=== PATIENT | female | born 1955 | race Caucasian/White ===

== ENCOUNTER → 2016-12-25 | Day surgery (SDC) | payer OTHER ==
[~2016-12-25] VITALS: Ht 157.5 cm; Wt 55.5 kg
[~2016-12-25] MED LIST: ASPI81TA28 PO; CARV3.12 PO; CARV3.122 PO; EPP3/2 IM; LIDOCAINE HCL 2% 2 ML VIAL (20MG/ML) ONE; MIDAZOLAM HCL 1 MG/ML 2ML VIAL ONE; PROPOFOL IV EMULSION 10 MG/ML 20 ML VIAL IV ONE; SODIUM CHLORIDE 0.9% 500ML 500 ML IV ONE; VNTHFA/IN INH
[2016-12-25 10:14] VITALS: Ht 157.5 cm; Wt 55.5 kg
--- NOTE | 2016-12-25 10:36 | Endo History and Physical ---
History & Physical Date of Service: Dec 25, 2016. Chief Complaint: RECTAL BLEEDING Referring Physician: DR JENNIFER LE History of Present Illness patient with abdominal pain and no previous screening colonoscopy. Past Surgical History Hx Cardiac Surgery: No Hx Internal Defibrillator: No Hx Pacemaker: No Hx Abdominal Surgery: Yes (LAPROSCOPY ) Hx of Implantable Prosthesis: No Hx Post-Op Nausea and Vomiting: No Hx Cancer Surgery: No Hx Thoracic Surgery: No Hx Orthopedic: No Hx Urinary Tract Surgery: Yes (BLADDER TACKED) Family History None Social History Smoking Status: Former Smoker Hx Substance Use: No Hx Alcohol Use: Yes (2 JADA GLASSES PER WEEK) Allergies Coded Allergies: Fish (Unverified Allergy, Unknown, ANAPHYLAXIS, 12/25/16) Iodine (Unverified Allergy, Unknown, ANAPHYLAXIS, 12/25/16) Uncoded Allergies: BEE STINGS (Allergy, Severe, ANAPHYLAXIS, 12/25/16) DUST, MOLDS (Allergy, Unknown, SHORTNESS OF BREATH, 12/25/16) Current Medications Reported Home Medications Medications Dose Route/Sig Max Daily Dose Days Date Category Aspirin Ec (Aspirin) 81 Mg Tab 81 Mg PO DAILY 12/25/16 Reported Coreg (Carvedilol) 3.125 Mg Tab 0.5 Tab PO DAILY 90 12/25/16 Reported Coreg (Carvedilol) 3.125 Mg Tab 1 Tab PO DAILY 30 12/25/16 Reported Vital Signs Weight (Kilograms): 55.5 Height (Feet): 5 Height (Inches): 2 Date Time Temp Pulse Resp B/P (MAP) Pulse Ox O2 Delivery O2 Flow Rate FiO2 12/25/16 10:07 36.5 66 16 91/69 (76) 99 Room Air Physical Exam General Appearance: no apparent distress Respiratory/Chest: Auscultation: breath sounds normal Cardiovascular: Heart Auscultation: RRR Abdomen: Inspection & Palpation: soft Liver: non-tender Assessment and Plan stable for colonoscopy
--- NOTE | 2016-12-25 11:01 | Discharge Instructions ---
Endoscopy Patient Instructions Date / Procedure(s) Performed Dec 25, 2016. Colonoscopy Allergy Information Coded Allergies: Fish (Unverified Allergy, Unknown, ANAPHYLAXIS, 12/25/16) Iodine (Unverified Allergy, Unknown, ANAPHYLAXIS, 12/25/16) Uncoded Allergies: BEE STINGS (Allergy, Severe, ANAPHYLAXIS, 12/25/16) DUST, MOLDS (Allergy, Unknown, SHORTNESS OF BREATH, 12/25/16) Discharge Date / Findings Dec 25, 2016. small polyp Medication Instructions Stopped Medication(s): ASPIRIN LAST DOSE 12/22/26 Provider Instructions Activity Restrictions - No exercising or heavy lifting for 24 hours. - Do not drink alcohol the day of the procedure. - Do not drive a car or operate machinery until the day after the procedure. - Do not make any important decisions or sign important papers in 24 hours after the procedure. Following Day: - Return to full activity which may include returning to work/school. Diet Start your diet with liquids and light foods (jello, soup, juice, toast). Then eat your usual diet if not nauseated. Treatment For Common After Affects For mild abdominal pain, bloating, or excessive gas: - Rest - Eat lightly - Lie on right side Follow-Up Information Follow-up with DR JENNIFER LE as scheduled Anesthesia Information What You Should Know You have had a procedure that required some medicine to reduce anxiety and discomfort. This treatment is called moderate sedation. After receiving the treatment, you may be sleepy, but you will be able to breathe on your own. The effects of the treatment may last for several hours. Follow these instructions along with Activity/Diet recommendations noted above: * Do NOT do anything where dizziness or clumsiness would be dangerous. * Rest quietly at home today, then you can be up and about tomorrow. * Have a responsible person stay with you the rest of today. * You may have had an I.V. today. If so, you may take the dressing off later today. Recommendations Call your doctor if: * Trouble breathing * Continuous vomiting for more than 24 hours * Temperature above 101 degrees * Severe abdominal pain or bloating * Pain not relieved by pain medicine ordered * There is increased drainage or redness from any incision * A large amount of rectal bleeding greater than 2-3 tablespoons. (If you had a polyp/s removed or have hemorrhoids, a small amount of blood - from the rectum is to be expected.) * You have any unanswered questions or concerns. IN THE EVENT OF A SERIOUS EMERGENCY, GO TO THE NEAREST EMERGENCY ROOM Your discharge instructions were prepared by provider Real Saul. Patient Instructions Signature Page Stefanie Bucio Patient (or Guardian) Signature/Date: I have read and understand the instructions given to me by my caregivers. Caregiver/RN/Doctor Signature/Date: The above-named patient and/or guardian has received patient instructions on this date. + Original Patient Signature Page (only) stays with chart. Please make copy for patient.
--- NOTE | 2016-12-25 11:10 | GI REPORT ---
Procedure Date: 12/25/2016 10:06 AM Procedure: Colonoscopy Indications: Screening for colorectal malignant neoplasm, Incidental - Generalized abdominal pain Medicines: See the Anesthesia note for documentation of the administered medications Complications: No immediate complications. Estimated Blood Loss: Estimated blood loss: none. Procedure: Pre-Anesthesia Assessment: - Prior to the procedure, a History and Physical was performed, and patient medications, allergies and sensitivities were reviewed. The patient's tolerance of previous anesthesia was reviewed. - The risks and benefits of the procedure and the sedation options and risks were discussed with the patient. All questions were answered and informed consent was obtained. - Patient identification and proposed procedure were verified prior to the procedure by the physician and the nurse. The procedure was verified in the pre-procedure area. - Pre-procedure physical examination revealed no contraindications to sedation. - After reviewing the risks and benefits, the patient was deemed in satisfactory condition to undergo the procedure. After I obtained informed consent, the scope was passed under direct vision. Throughout the procedure, the patient's blood pressure, pulse, and oxygen saturations were monitored continuously. The scope was introduced through the anus and advanced to the terminal ileum, with identification of the appendiceal orifice and IC valve. The colonoscopy was performed without difficulty. The patient tolerated the procedure well. The quality of the bowel preparation was good. Findings: The perianal and digital rectal examinations were normal. The terminal ileum appeared normal. A 5 mm polyp was found at 20 cm proximal to the anus. The polyp was pedunculated. The polyp was removed with a hot snare. Resection and retrieval were complete. Verification of patient identification for the specimen was done by the physician and nurse using the patient's name and medical record number. Estimated blood loss: none. The exam was otherwise without abnormality on direct and retroflexion views. Impression: - The examined portion of the ileum was normal. - One 5 mm polyp at 20 cm proximal to the anus, removed with a hot snare. Resected and retrieved. - The examination was otherwise normal on direct and retroflexion views. Recommendation: - Await pathology results. - Discharge patient to home. Real Saul M.D. Real Saul MD 12/25/2016 11:09:29 AM This report has been signed electronically. Note Initiated On: 12/25/2016 10:06 AM I attest to the content of the Intraoperative Record and orders documented therein, exceptions below
--- NOTE | 2016-12-25 11:15 | Anesthesiology Progress Note ---
Anesthesia Post Op Note Date & Time Dec 25, 2016 at 11:15 Vital Signs Pain Intensity: 0 Vital Signs Past 12 Hours Date Time Temp Pulse Resp B/P (MAP) Pulse Ox O2 Delivery O2 Flow Rate FiO2 12/25/16 11:05 70 18 96/63 (74) 100 Room Air 12/25/16 10:07 36.5 66 16 91/69 (76) 99 Room Air Notes Mental Status: alert / awake / arousable, participated in evaluation Pt Amnestic to Procedure: Yes Nausea / Vomiting: adequately controlled Pain: adequately controlled Airway Patency, RR, SpO2: stable & adequate BP & HR: stable & adequate Hydration State: stable & adequate Anesthetic Complications: no major complications apparent
[2016-12-25 11:34] VITALS: BP 94/63; PULSE 68; O2SAT 98
== END | disposition home or self-care (01) ==
LOC: C.GI 09:20
PROVIDERS: ATTEND Internal Medicine Gastroenterology
DX: Z12.11 Encounter for screening for malignant neoplasm of colon (principal); D12.6 Benign neoplasm of colon, unspecified; R10.84 Generalized abdominal pain; Z87.891 Personal history of nicotine dependence; Z79.82 Long term (current) use of aspirin; Z79.899 Other long term (current) drug therapy

== ENCOUNTER → 2017-01-24 | Outpatient (CLI) | payer OTHER ==
[~2017-01-24] MED LIST changes: +GADAVIST IV PRN; -LIDOCAINE HCL 2% 2 ML VIAL (20MG/ML) ONE; -MIDAZOLAM HCL 1 MG/ML 2ML VIAL ONE; -PROPOFOL IV EMULSION 10 MG/ML 20 ML VIAL IV ONE; -SODIUM CHLORIDE 0.9% 500ML 500 ML IV ONE
--- NOTE | 2017-01-24 08:02 | DIAGNOSTIC IMAGING REPORT ---
ABDOMINAL MRI WITH AND WITHOUT INTRAVENOUS CONTRAST HISTORY: Splenic lesions. ABNORMAL CT ABDOMINAL, AB PAIN UNSPECIFIED TECHNIQUE: Multiplanar multisequence MRI of the abdomen was performed both before and after the intravenous administration of contrast. COMPARISON STUDY: None. FINDINGS: There are 2 T2 hyperintense, T1 hypointense nonenhancing lesion within the liver measuring 7 mm. These are consistent with cysts. Mild fullness within the right renal collecting system without vanessa hydronephrosis. The kidneys enhance normally. The pancreas and adrenal glands are unremarkable. There is a small gallstone. No retroperitoneal lymphadenopathy. The visualized loops of bowel show no wall thickening or obstruction. Multiple T2 hyperintense, T1 hypointense nonenhancing lesions seen scattered throughout the spleen. These do not demonstrate enhancement and are therefore consistent with cysts. Dominant lesion measures up to 1.5 cm. A few these demonstrate thin septations. No solid enhancing masses identified within the spleen. IMPRESSION: 1. Multiple splenic cysts. Some of these contain a few thin septations. These do not have the typical appearance for hydatid cysts. 2. There are 2 subcentimeter hepatic cysts. 3. Cholelithiasis. Electronically signed by: Tacho Arana M.D. 01/24/2017 8:01 AM Dictated Date/Time: 01/24/2017 7:52 AM
== END | disposition home or self-care (01) ==
LOC: C.MRI 06:05
PROVIDERS: ATTEND Surgery
DX: R93.5 Abnormal findings on diagnostic imaging of other abdominal regions, including retroperitoneum (principal); D73.4 Cyst of spleen; K76.89 Other specified diseases of liver; K80.20 Calculus of gallbladder without cholecystitis without obstruction

== ENCOUNTER 2017-04-02 05:01 | Day surgery (SDC) | payer OTHER ==
[2017-03-21 08:36] VITALS: BMI 22.0
[~2017-04-02] VITALS: Ht 157.5 cm; Wt 56.4 kg
[~2017-04-02 05:01] MED LIST changes: +CALC600T37 PO; -CARV3.12 PO; -GADAVIST IV PRN; +MULT-506 PO; +POTA10CA28 PO
[2017-04-02 05:37] VITALS: BP 96/76; PULSE 60; TEMP 36.6; O2SAT 97; Ht 157.5 cm; Wt 56.4 kg
[2017-04-02] MEDS ORDERED: LACTATED RINGER'S 1000ML 1,000 ML IV SCH (06:00)
[2017-04-02] MEDS ORDERED: CEFAZOLIN 2000MG IV PUSH 10 ML IV SCH (06:00)
[2017-04-02] MEDS ORDERED: CONRAY 60% 50 ML VIAL ONE (06:42)
[2017-04-02] MEDS ORDERED: BUPIVACAINE 0.5 % 5 MG/1 ML MPF 30ML VIAL ONE (06:42)
[2017-04-02] MEDS ORDERED: HEPARIN SOD (PORCINE) 1000 UNIT/ML 10 ML VIAL ONE (06:42)
[2017-04-02] MEDS ORDERED: CEFAZOLIN SOD 1 GM VIAL ONE (06:42)
[2017-04-02] MEDS ORDERED: LIDOCAINE HCL 2% 2 ML VIAL (20MG/ML) ONE (06:50)
[2017-04-02] MEDS ORDERED: ROCURONIUM BROMIDE 10 MG/ML 5 ML VIAL IV ONE (06:50)
[2017-04-02] MEDS ORDERED: PROPOFOL IV EMULSION 10 MG/ML 20 ML VIAL IV ONE (06:50)
[2017-04-02] MEDS ORDERED: MIDAZOLAM HCL 1 MG/ML 2ML VIAL ONE (06:50)
[2017-04-02] MEDS ORDERED: FENTANYL CITRATE INJ 50 MCG/1 ML 2 ML VIAL ONE ×2 (06:50→08:05)
--- NOTE | 2017-04-02 06:52 | History & Physical Bridge Note ---
H&P Re-Evaluation Bridge Note: I have examined the patient, reviewed the History & Physical and in the interval since the performance of the History & Physical I have noted the following changes of clinical significance: No changes noted
[2017-04-02] MEDS ORDERED: FENTANYL CITRATE INJ 50 MCG/1 ML 2 ML VIAL IV PRN (07:00)
[2017-04-02] MEDS ORDERED: EpHEDrine SULFATE INJ 50 MG/ML AMP IV PRN (07:00)
[2017-04-02] MEDS ORDERED: ONDANSETRON INJ 2 MG/ML 2 ML VIAL IV PRN ×2 (07:00→08:30)
[2017-04-02] MEDS ORDERED: NALOXONE HCL 0.4 MG/1 ML VIAL/CARP IV PRN (07:00)
[2017-04-02] MEDS ORDERED: ATROPINE SULFATE 0.1 MG/ML 5ML SYR IV PRN (07:00)
[2017-04-02] MEDS ORDERED: FLUMAZENIL 0.1 MG/1 ML 10 ML VIAL IV PRN (07:00)
[2017-04-02] MEDS ORDERED: PROMETHAZINE HCL INJ 12.5 MG in SODIUM CHLORIDE 0.9% 50ML 50 ML IV PRN (07:00)
[2017-04-02] MEDS ORDERED: PHENYLEPHRINE 100MCG/ML 5ML SYR ONE (07:11)
[2017-04-02] MEDS ORDERED: ETOMIDATE 2 MG/ML 20 ML VIAL IV ONE (07:11)
[2017-04-02] MEDS ORDERED: DEXAMETHASONE SOD INJ 4 MG/ML VIAL ONE (07:45)
[2017-04-02] MEDS ORDERED: ONDANSETRON INJ 2 MG/ML 2 ML VIAL ONE (07:45)
[2017-04-02] MEDS ORDERED: GLYCOPYRROLATE INJ 0.2 MG/ML VIAL ONE (07:45)
[2017-04-02] MEDS ORDERED: NEOSTIGMINE METHYLSULFATE 5 MG/5 ML SYR ONE (07:45)
[2017-04-02] MEDS ORDERED: SODIUM CHLORIDE 0.9% 1000ML 1,000 ML IV SCH (08:17)
--- NOTE | 2017-04-02 08:17 | [facility] Post Operative Brief Note ---
Immediate Operative Summary Operative Date Apr 02, 2017. Pre-Operative Diagnosis symptomatic cholelithiasis Post-Operative Diagnosis symptomatic cholelithiasis Procedure(s) Performed laparoscopic cholecystectomy Surgeon Dr. Garret Dempsey Hand Hose Cutter Surgeon(s) Cathy ARNOLD Estimated Blood Loss 5ML Findings See dictation Specimens A: Gallbladder and contents Drains None Anesthesia General Complication(s) None Disposition Recovery Room / PACU
--- NOTE | 2017-04-02 08:21 | Discharge Instructions ---
Discharge Instructions Date of Service Apr 02, 2017. Admission Reason for Admission: Symptomatic Cholelithiasis Discharge Discharge Diagnosis / Problem: Same Discharge Goals Goal(s): Decrease discomfort Activity Recommendations Activity Limitations: per Instructions/Follow-up section Lifting Limitations: no more than 10 pounds (for 2 weeks) Shower/Bathe: tomorrow (shower only) . Instructions / Follow-Up Instructions / Follow-Up Post-Surgical ~ Discharge Instructions Activity Recommendations: - lifting limitation: (10 pounds for 2 weeks), - exercise/sex/sports limit: (nonstrenuous for 2 weeks), - driving or machine use limit: (none for 1 week), - Shower/bathe limit: (may shower beginning tomorrow) Diet: - Resume previous diet SPECIAL CARE INSTRUCTIONS: - May shower in 24 hours. Let water run over area and pat dry. - Leave steri strips on for one week. - Call the surgeon's office with any questions or concerns - - (ex. temperature higher than 101 degrees F, excessive bleeding or pain). MEDICATIONS: - Resume previous medications unless instructed otherwise by your surgeon. - Ibuprofen 600 mg every 6 hours with food - Percocet 1 every 4 hours, as needed for pain FOLLOW UP VISIT: - If not already scheduled, please call the office to schedule a two week follow-up appointment. Office number Current Hospital Diet Patient's current hospital diet: Discharge Diet Recommended Diet: Regular Diet Procedures Procedures Performed: laparoscopic cholecystectomy Pending Studies Studies pending at discharge: yes List of pending studies: Pathology Medical Emergencies . Who to Call and When: Medical Emergencies: If at any time you feel your situation is an emergency, please call 911 immediately. . Non-Emergent Contact Non-Emergency issues call your: Primary Care Provider Call Non-Emergent contact if: your pain is worsening, wound has increased redness, wound has increased pain . "Provider Documentation" section prepared by Garret Dempsey. . VTE Core Measure Inpt VTE Proph given/why not?: Treatment not indicated
[2017-04-02] MEDS ORDERED: MoRPHine SULFATE 4 MG/ML 1 ML CARP\\VIAL IV PRN (08:30)
[2017-04-02] MEDS ORDERED: OXYCODONE/ACETAMINOPHEN 5-325 TAB PO PRN (08:30)
[2017-04-02] MEDS ORDERED: IBUPROFEN 600 MG TAB ONE (08:43)
[2017-04-02] MEDS ORDERED: NURSING VERBAL MED ORDER ONE (08:45)
--- NOTE | 2017-04-02 08:55 | Anesthesiology Progress Note ---
Anesthesia Post Op Note Date & Time Apr 02, 2017 at 08:54 Vital Signs Pain Intensity: 6 Vital Signs Past 12 Hours Date Time Temp Pulse Resp B/P (MAP) Pulse Ox O2 Delivery O2 Flow Rate FiO2 04/02/17 08:41 133/80 04/02/17 08:39 53 16 04/02/17 08:39 53 16 99 04/02/17 08:36 138/79 04/02/17 08:34 54 16 04/02/17 08:34 54 16 100 04/02/17 08:33 52 17 04/02/17 08:33 52 17 100 04/02/17 08:30 140/84 04/02/17 08:28 60 16 04/02/17 08:28 60 16 100 04/02/17 08:26 122/75 04/02/17 08:23 52 16 100 04/02/17 08:23 52 16 04/02/17 08:20 120/76 04/02/17 08:19 115/68 04/02/17 08:18 54 16 98 04/02/17 08:18 54 16 04/02/17 08:18 36.2 52 15 115/68 98 Oxymask 10 04/02/17 05:37 36.6 60 18 96/76 (83) 97 Room Air Notes Mental Status: alert / awake / arousable, participated in evaluation Pt Amnestic to Procedure: Yes Nausea / Vomiting: adequately controlled Pain: adequately controlled Airway Patency, RR, SpO2: stable & adequate BP & HR: stable & adequate Hydration State: stable & adequate Anesthetic Complications: no major complications apparent
[2017-04-02] MEDS ORDERED: IBUPROFEN 600 MG TAB PO PRN ×2 (09:00)
[2017-04-02 09:10] VITALS: BP 123/63; PULSE 56; TEMP 36.5; O2SAT 98
--- NOTE | 2017-04-02 09:38 | OPERATIVE REPORT ---
DATE OF OPERATION: 04/02/2017 PREOPERATIVE DIAGNOSES: Cholelithiasis, chronic cholecystitis. POSTOPERATIVE DIAGNOSES: Same. PROCEDURE: Laparoscopic cholecystectomy. SURGEON: Dr. Dempsey. REHABILITATION THERAPIST: Cathy Whittaker PA-C FINDINGS: The gallbladder was long and floppy. There were some adhesions of the omentum to the right lobe of the liver just lateral to the gallbladder. There were no adhesions to the gallbladder. The cystic duct was not dilated. The liver was of normal size and contour. The stomach was mildly dilated. The visible bowel appeared normal. TECHNIQUE: The patient was given a general anesthetic and the area was prepped and draped in usual sterile fashion. Transverse incision was made below the umbilicus, carried down through the subcutaneous tissue to the fascia, which was grasped with 2 John clamps and incised between. The peritoneum was identified, incised, and the introducer was placed bluntly. The abdomen was then insufflated to a pressure of 15 mmHg with carbon dioxide. The upper midline, midclavicular and anterior axillary introducers were placed under direct vision through small skin incisions. Traction was placed on the gallbladder and beginning on the lateral side, the peritoneum was opened. The peritoneum was peeled down towards the common bile duct. The infundibulum was dissected away from the liver on the lateral side allowing for better mobility. Further dissection was carried over the anterior surface of the infundibulum and the triangle of Calot was opened. The infundibulum was dissected away from the liver on the medial side. The cystic duct was then identified and was skeletonized on the lateral and medial sides and then allowed for posterior dissection to free it and then confidently identify the cystic duct gallbladder junction. Performing a dissection also exposed the cystic artery. The cystic artery was also isolated and a window created posterior to both of those structures. Two clips were placed on the proximal cystic duct, one near the gallbladder and it was divided. Two clips were placed on the proximal cystic artery, one near the gallbladder and it was divided. The gallbladder was then peeled off the liver bed and in doing so, there were 2 what appeared to be veins that were larger than average. These were dissected out, isolated and clipped before dividing them with cautery. Once the gallbladder had been completely removed, it was placed into an Endobag and brought out through the upper midline incision with ease. That introducer was replaced. The liver edge was elevated and the subdiaphragmatic and subhepatic spaces were irrigated. The irrigation was removed. The gallbladder bed of the liver was inspected and there was no bleeding. The previously placed clips were intact. Gas was allowed to escape and the introducers were removed. The fascia of the umbilical and upper midline introducer sites was closed with interrupted 0 Vicryl and the skin of all the incisions was closed with 4-0 Monocryl in either an interrupted or running subcuticular fashion. The skin was anesthetized with 0.5% Marcaine. The skin was cleansed, dried, benzoin placed, Steri-Strips applied. Estimated blood loss was 5 mL. Sponge, needle and instrument counts were correct prior to closure. The patient tolerated the surgical procedure without complication and was transferred to recovery. I attest to the content of the Intraoperative Record and any orders documented therein. Any exception s are noted below.
[2017-04-02 09:40] VITALS: BP 135/88; PULSE 59; TEMP 36.5; O2SAT 98
[2017-04-02 10:10] VITALS: BP 93/51; PULSE 59; TEMP 36.5; O2SAT 98
[2017-04-02 10:40] VITALS: BP 95/60; PULSE 60; TEMP 36.6; O2SAT 98
== END 2017-04-02 12:30 | disposition home or self-care (01) ==
LOC: C.ACU 05:01
PROVIDERS: ATTEND Surgery
DX: K80.10 Calculus of gallbladder with chronic cholecystitis without obstruction (principal); J45.909 Unspecified asthma, uncomplicated; Z88.2 Allergy status to sulfonamides; Z90.89 Acquired absence of other organs; Z98.890 Other specified postprocedural states; Z90.710 Acquired absence of both cervix and uterus; Z79.82 Long term (current) use of aspirin